=== PATIENT | female | born 1985 | race Caucasian/White ===

== ENCOUNTER 2016-11-21 16:38 | Observation (INO) ==
[2016-11-21] MEDS ORDERED: IOPAMIDOL 100 ML BOTTLE IJ ONE (16:39)
[2016-11-21] MEDS ORDERED: PROMETHAZINE 25 MG/ML VIAL IV ONE ×2 (17:45→19:18)
[2016-11-21] MEDS ORDERED: 0.9 % SODIUM CHLORIDE 1,000 ML IV ONE ×2 (17:46→21:31)
[2016-11-21 18:40] LABS: Appearance,Urine CLEAR; Bacteria,Urine 0 /hpf (0); Bilirubin,Urine NEG (NEG); Color,Urine STRAW; Glucose,Urine (UA) NEGATIVE (NEG); Leukocyte Esterase,Urine 25 /uL (NEG); Nitrate,Urine NEG (NEG); Protein,Urine NEG (NEG); Specific Gravity,Urine 1.005 (1.000-1.035); Urine Blood NEG mg/dL (<0.03); Urine RBC 0 /hpf (0-1); Urine Squamous Epithelial Cell 2 /hpf (0-4); Urine Transitional Epi Cells < 1 /hpf (0-2); Urine WBC 2 /hpf (0-4); Urobilinogen,Urine NEG (NEG)
[2016-11-21 18:51] LABS: ALT/SGPT 6 U/l (0-40); Albumin 4.8 gm/dL (3.2-5.2); Albumin/Globulin Ratio 1.5 (1.0-2.3); Alkaline Phosphatase 77 U/L (39-117); Blood Urea Nitrogen 6 mg/dl (6-20)
[2016-11-21] MEDS ORDERED: POTASSIUM CHLORIDE 40 MEQ in DEXTROSE 5% IN WATER 500 ML IV ONE (18:59)
[2016-11-21] MEDS ORDERED: POTASSIUM CHLORIDE 20 MEQ/10 ML VIAL IV ONE (19:20)
[2016-11-21] MEDS ORDERED: KETOROLAC 30 MG/ML VIAL IV ONE (20:15)
[2016-11-21] MEDS ORDERED: METOCLOPRAMIDE 10 MG/2 ML VIAL IV ONE (20:54)
[2016-11-21] MEDS ORDERED: HYDROmorphone 2 MG/ML SYRINGE IV PRN (21:01)
[2016-11-21] MEDS ORDERED: PANTOPRAZOLE 40 MG VIAL IV ONE (21:01)
--- NOTE | 2016-11-21 21:05 | Emergency Department Note ---
Abdominal Pain HPI - General Chief Complaint: Nausea/Vomiting/Diarrhea Stated Complaint: abdominal pain, nausesa Time Seen by Provider: 11/21/16 17:56 Source: patient Mode of arrival: ambulatory Limitations: no limitations - History of Present Illness HPI Narrative: Approximate three-week total history of illness/malaise/fatigue with intractable vomiting. She came to the ER 4 days ago complaining of same was treated with Phenergan because she had developed a reaction to Zofran. She was also given potassium for hypokalemia. Abdominal series was negative at that time. She comes back tonight having managed at home for the last 4 days with Phenergan but has now run out. She is not getting significantly better. Still having right upper quadrant pain radiating across the whole upper abdomen. Some GERD as well status post vomiting. Her mother who is here for the interview and exam as well notes that she has not been able to hold much down without the Phenergan. She is able to eat somewhat the Phenergan. Low-grade fevers reported - Related Data Previous Rx's Medication Instructions Recorded Promethazine HCl 12.5 mg PO Q6HP PRN #12 tablet 11/19/16 Allergies Allergy/AdvReac Type Severity Reaction Status Date / Time ondansetron AdvReac Intermediate Verified 11/18/16 22:42 [From Zofran (as hydrochloride)] Penicillins AdvReac Unknown Verified 11/21/16 16:45 Review of Systems All systems ED: reviewed and negative except as stated. Abdominal Pain PMH - Past Medical History Attestation: Yes: The following information was validated with the patient. Medical history: Reports: no medical history Surgical history ED: Reports: other (breast augmentation, D&C 2) Physical Exam Normocephalic atraumatic. Conjunctiva clear sclerae anicteric. No nasal discharge or congestion. Oropharynx with dry buccal mucosa. Clear braces on her teeth. Neck is supple without lymphadenopathy or thyromegaly. Heart is regular rate and rhythm no murmurs appreciated. Lungs are clear to auscultation bilaterally without wheezes rales rhonchi or respiratory distress. Abdomen soft mildly tender throughout but especially upper quadrant and epigastrium. No pedal edema. +2 radial pulse. Notable tremor and chills low- grade temperature elevation. Alert oriented and able to answer questions appropriately. - General Limitations: no limitations Course Vital Signs Temperature 97.5 F L 11/21/16 16:40 Pulse Rate 76 11/21/16 16:40 Respiratory Rate 18 11/21/16 16:40 Pulse Oximetry (%) 100 11/21/16 16:40 Temperature 97.5 F L 11/21/16 16:40 Pulse Rate 61 11/21/16 19:00 Respiratory Rate 18 11/21/16 19:00 Blood Pressure 122/73 11/21/16 19:00 Pulse Oximetry (%) 100 11/21/16 19:00 Abdominal Pain - Lab Data Lab results reviewed: Yes I reviewed the patient's lab results. Result diagrams: 11/21/16 17:48 Lab Results 11/21/16 11/21/16 11/21/16 Range/Units 17:38 17:48 17:48 POC Hct 44.0 (36.0-48.0) % POC Sodium 143 (133-145) mmol/L Sodium 141 (133-145) mmol/L POC Potassium 3.0 L (3.3-5.1) mmol/L Potassium 3.1 L (3.3-5.1) mmol/L POC Chloride 110 H (96-108) mmol/L Chloride 100 (96-108) mmol/L Carbon Dioxide 26 (22-30) mmol/L POC Total CO2 26 (22-30) mmol/L Anion Gap 15.0 (8-16) POC BUN 4 L (6-20) mg/dl BUN 6 (6-20) mg/dl Creatinine 0.7 (0.6-1.1) mg/dl POC Creatinine 0.6 (0.6-1.1) mg/dl GFR Calculation 115 Glucose 103 (70-105) mg/dL POC Glucose 104 (70-105) mg/dL Calcium 9.5 (8.6-10.4) mg/dl POC WB Ioniz Calcium 1.18 (1.16-1.32) mmol/L Total Bilirubin 0.3 (0.0-1.0) mg/dL AST 11 (0-37) U/l ALT 6 (0-40) U/l Alkaline Phosphatase 77 (39-117) U/L Total Protein 8.1 (5.9-8.4) gm/dL Albumin 4.8 (3.2-5.2) gm/dL Globulin 3.3 (2.2-3.7) gm/dL Albumin/Globulin Ratio 1.5 (1.0-2.3) Urine Color Straw Urine Appearance Clear Urine pH 7.0 (5.0-9.0) Ur Specific [place] 1.005 (1.000-1.035) Urine Protein Neg (NEG) mg/dL Urine Glucose (UA) Negative (NEG) mg/dL Urine Ketones Neg (NEG) mg/dL Urine Occult Blood Neg (<0.03) mg/dL Urine Nitrate Neg (NEG) Urine Bilirubin Neg (NEG) mg/dL Urine Urobilinogen Neg (NEG) mg/dL Ur Leukocyte Esterase 25 A (NEG) /uL Urine RBC 0 (0-1) /hpf Urine WBC 2 (0-4) /hpf Ur Squamous Epith Cells 2 (0-4) /hpf Ur Transition Epith Cell < 1 (0-2) /hpf Urine Bacteria 0 (0) /hpf Ur Culture Indicated? No - Radiology Data Radiology results reviewed: Yes I reviewed the patient's radiology results. CT scan of the abdomen and pelvis does not show concerning features Disposition Clinical Impression: Hypokalemia, gastrointestinal losses Intractable nausea and vomiting Qualifiers: Vomiting type: unspecified Qualified Code(s): R11.2 - Nausea with vomiting, unspecified Summary: Initially treated with Phenergan 2 doses Toradol and a K rider for the hypokalemia. Over she remains intractable nausea and vomiting. At this point I ordered few more labs and gave her dose Protonix Dilaudid and Reglan Discussed with Dr. hylton- will admit the patient for intractable nausea and vomiting further workup and treatment Disposition: Xfer As Outpt/Obs ([facility]) Condition: Fair Referrals: Jennifer Tavarez ARNP [Primary Care Provider] -
[2016-11-21 21:47] LABS: Amphetamine Screen,Urine NONE DETECTED (NONDETECTED); Benzodiazepines Screen,Urine NONE DETECTED (NONDETECTED); Cocaine Screen,Urine NONE DETECTED (NONDETECTED); Opiate Screen,Urine NONE DETECTED (NONDETECTED)
--- NOTE | 2016-11-21 22:39 | Internal Med History&Physical ---
Medical - H&P: HPI Patient information: Note initiated : 11/21/16 at 10:30 pm Service Date, if different from initiated Date: [] Patient: Danielle Winchester a 31 y/o F admitted on for abdominal pain, nausesa. Chief Complaint: [] History of present illness: Ms. Winchester is a 31 year old female, woman, presents to the ER today for evaluation of significant nausea, vomiting and dizziness which has been going on for 1 week. The patient was here in the ER 2 days ago, where she was daignosed with gastroenteritis, and given phnergan and sent home, the patient was able to use the phenargan to help keep food down, but she finished her medication and her symptoms returned. The patient notes that she had a viral syndrome, with stuffy nose, cough, and sinus congestion approximately 1.5 weeks ago, she was given zithromax by her PCP , but she did not take the medication and her symptoms resolved. For the last 1 week the patient has been having significant nausea/ vomiting/ dizziness (vertigo), with room spinning around her, and epigastric, right upper quadrant abdominal pain. She also endorses some tinnitus, which is intermittent , but denies any hearing loss. The vertigo and nausea vomiting started around the same time, there is no h/o headache or focal neurological deficit. Abominal pain, and nausea and vomiting has been intractable, she admits to get some relief with anti nausea medications, but the symptoms recur. She does not have h/o gall stones, but does endorse h//o significant reflux disease, she does not take any medications She also had some low grade temperature at her home. In the ER the patient underwent a CT scan of the abdomen which is unremarkable, read by the dasha woods, the patient Urine hcg was read as negative in the ER The patient LMP was 2 weeks ago, she notes that 6 weeks ago her periods started changing, and she had a period 6 weeks ago, and then again 2 weeks ago. She does not use any contraceptive device, and her has had a vasectomy. - Constitutional Constitutional: Present: chills, fever(s), weakness - EENT Eyes: Present: blurry vision. Absent: loss of vision Ears: Present: tinnitus. Absent: decreased hearing, ear pain Nose, mouth and throat: Present: disequilibrium, dizziness, vertigo. Absent: abnormal hearing, epistaxis, sinus pain, sore throat - Cardiovascular Cardiovascular: Present: lightheadedness. Absent: chest pain, chest pain at rest, syncope - Respiratory Respiratory: Absent: cough, dyspnea on exertion, excessive phlegm production - Gastrointestinal Gastrointestinal: Present: abdominal pain, nausea, vomiting. Absent: constipation, diarrhea, hematemesis, hematochezia - Genitourinary Genitourinary: Absent: hematuria, urinary hesitancy, urinary urgency Menstruation: Present: as per HPI - Integumentary Integumentary: Absent: new lesions, jaundice - Neurological Neurological: Present: vertigo. Absent: focal weakness, syncope - Endocrine Endocrine: Absent: polydipsia, polyphagia, polyuria - Hematologic/Lymphatic Hematologic/Lymphatic: Absent: easy bleeding, easy bruising - Allergic/Immunologic Allergic/Immunologic: Absent: uticaria, wheezing Medical - H&P: PMH Medical history: h/o GERD Surgical history: No surgical history Pertinent family history: Mother had GB revmoved Uncle with ca pancreas. Social history: lives with denies recreational drugs. no etoh. Medical - H&P: Meds Allergies Allergy/AdvReac Type Severity Reaction Status Date / Time ondansetron AdvReac Intermediate Verified 11/18/16 22:42 [From Zofran (as hydrochloride)] Penicillins AdvReac Unknown Verified 11/21/16 16:45 Medical - H&P: Exam - Constitutional Vitals: Temp Pulse Resp BP Pulse Ox 97.5 F L 61 18 122/73 100 11/21/16 16:40 11/21/16 19:00 11/21/16 19:00 11/21/16 19:00 11/21/16 19:00 General appearance: average body habitus, cooperative, disheveled - Head Head exam: Present: atraumatic, normal inspection, normocephalic - Eye Eye exam: Present: PERRL. Absent: conjunctival injection, periorbital swelling , periorbital tenderness, scleral icterus - ENT ENT exam: Present: mucous membranes dry, TM's normal bilaterally - Neck Neck exam: Present: normal inspection - Respiratory Respiratory exam: Present: normal respiratory exam. Absent: accessory muscle use, chest wall tenderness, decreased breath sounds, rhonchi, stridor, wheezes - Cardiovascular Cardiovascular exam: Present: normal rate and rhythm, +S1, +S2 - GI/Abdominal GI/Abdominal exam: Present: normal bowel sounds, soft Additional comments: right upper quadrant tenderness, worse with deep inspiration. Left lower quadrant tenderness. - Extremities Exam Extremities exam: Present: Foot pink and warm, neurovascular intact. Absent: pedal edema - Neurological Exam Neurological exam: Present: alert, CN II-XII intact, oriented X3. Absent: motor sensory deficit - Psychiatric Psychiatric exam: Absent: agitated, anxious - Skin Skin exam: Absent: rash, urticaria, vesicles Medical - H&P: Reslt - Labs CBC & Chem 7: 11/21/16 17:48 Labs: BMP 11/21/16 17:48 Sodium 141 Potassium 3.1 L Chloride 100 Carbon Dioxide 26 BUN 6 Creatinine 0.7 Glucose 103 Calcium 9.5 Liver Function 11/21/16 Range/Units 17:48 Total Bilirubin 0.3 (0.0-1.0) mg/dL AST 11 (0-37) U/l ALT 6 (0-40) U/l Alkaline Phosphatase 77 (39-117) U/L Albumin 4.8 (3.2-5.2) gm/dL Urine 11/21/16 Range/Units 17:38 Urine Color Straw Urine Appearance Clear Urine pH 7.0 (5.0-9.0) Ur Specific [place] 1.005 (1.000-1.035) Urine Protein Neg (NEG) mg/dL Urine Glucose (UA) Negative (NEG) mg/dL Medical - H&P: A/P (1) Acute vestibular neuritis Current visit: Yes Status: Acute (2) Hypokalemia, gastrointestinal losses Current visit: Yes Status: Acute (3) Intractable nausea and vomiting Current visit: Yes Status: Acute - Narrative A/P Narrative: This is a 31 yr female who presents with vertigo, nausea and vomiting after an upper resp infection approx 2.5 weeks ago, her symptoms started 1 week ago. given her history its likely that she has vestibular neuritis, no hearing loss reported. Treat with IV steroids for now, and symptomatic management for nausea and vomiting. The patients mother had gall stones/ gall bladder surgery, its possible that the patient has Gall bladder disease, and evidenced by ruq pain, a neg CT is reassuring, labs were negative 2 days ago for amylase lipase and normal lft, will repeat same. get usg liver Alternatively this could just be severe gastritis Treat symptomatically for now, IV fluids, IV ppi, IV reglan (has gastric distention on CT, this will help with prokinetic action) she is allergic to zofran.. Replace K IV, recheck labs.
[2016-11-21] MEDS ORDERED: SENNOSIDES 1 TABLET PO PRN (23:06)
[2016-11-21] MEDS ORDERED: MAGNESIUM HYDROXIDE 30 ML ORAL.SUSP PO PRN (23:06)
[2016-11-21] MEDS ORDERED: BISACODYL 10 MG SUPP.RECT PR PRN (23:06)
[2016-11-21] MEDS ORDERED: NALOXONE HCL 0.4 MG/ML VIAL IV PRN (23:06)
[2016-11-21] MEDS ORDERED: methylPREDNISolone SOD SUCC 125 MG/2 ML VIAL ONE (23:37)
[2016-11-21] MEDS ORDERED: HYDROmorphone 2 MG/ML SYRINGE ONE (23:38)
[2016-11-21] MEDS: methylPREDNISolone SOD SUCC 40 MG/ML VIAL IV SCH (23:44)
[2016-11-21] MEDS: DEXTROSE 5%-1/2NS 1,000 ML IV SCH (23:44)
[2016-11-21] MEDS: HYDROmorphone 2 MG/ML SYRINGE IV PRN (23:45)
[2016-11-21 23:55] LABS: Basophils # (Auto) 0 K/mcL (0.0-0.3); Basophils % (Auto) 0.4 % (0.0-2.0); Eosinophils # (Auto) 0.1 K/mcL (0.0-0.7); Eosinophils % (Auto) 1.4 % (0.0-7.0); Granulocytes % (Auto) 59.5 % (38.0-78.0); Lymphocytes # (Auto) 3.2 K/mcL (1.5-4.8); Lymphocytes % (Auto) 31.6 % (15.5-49.0); Mean Cell Volume 85.4 fL (80.0-100.0); Mean Corpuscular HGB Conc 32.1 g/dL (31.0-36.0); Mean Corpuscular Hemoglobin 27.4 pg (26.0-34.0); Monocytes # (Auto) 0.7 K/mcL (0.1-0.9); Monocytes % (Auto) 7.1 % (1.0-9.0); Platelet Count 388 K/mcL (140-440); RBC 5.08 M/mcL (4.00-5.20); Red Cell Distribution Width 13.4 % (11.5-14.5)
[2016-11-22] MEDS: methylPREDNISolone SOD SUCC 40 MG/ML VIAL IV SCH ×4 (00:10→21:36)
[2016-11-22 00:15] LABS: Estimated Average Glucose(eAG) 97 mg/dL
[2016-11-22 00:22] LABS: ALT/SGPT 5 U/l (0-40); Albumin 4.2 gm/dL (3.2-5.2); Albumin/Globulin Ratio 1.7 (1.0-2.3); Alkaline Phosphatase 67 U/L (39-117); Amylase 38 U/L (28-100); Bilirubin,Direct < 0.2 mg/dL (0.0-0.3); Blood Urea Nitrogen 4 mg/dl (6-20); Gamma Glutamyl Transpeptidase 13 U/L (5-36); Lipase 34 U/L (7-60); Magnesium 1.9 mg/dL (1.6-2.5); Phosphorous 3.4 mg/dL (2.7-4.5); Uric Acid 2.6 mg/dL (2.5-8.0)
[2016-11-22] MEDS ORDERED: METOCLOPRAMIDE 10 MG/2 ML VIAL ONE (03:50)
[2016-11-22] MEDS: 0.9 % SODIUM CHLORIDE 10 ML SYRINGE IV SCH ×3 (06:36→21:29)
[2016-11-22] MEDS: DEXTROSE 5%-1/2NS 1,000 ML IV SCH ×2 (07:39→15:07)
[2016-11-22] MEDS: PANTOPRAZOLE 40 MG VIAL IV SCH ×2 (07:39→17:43)
[2016-11-22] MEDS: METOCLOPRAMIDE 10 MG/2 ML VIAL IV PRN ×3 (08:25→20:24)
[2016-11-22] MEDS: HYDROmorphone 2 MG/ML SYRINGE IV PRN (08:27)
--- NOTE | 2016-11-22 09:05 | Cat Scan Report ---
CLINICAL INFORMATION: Reason for Exam:nausea and vomiting x 3 weeks, belly pain COMPARISON: None. TECHNIQUE: Following injection of intravenous contrast the patient was scanned during the portal venous phase from the diaphragm through the symphysis pubis. Sagittal and coronal reformats were created.. Five minute delayed axial images of the upper abdomen were acquired. FINDINGS: There is a trace amount of pleural fluid layering posteriorly bilaterally. Bilateral breast implants are noted. The lung bases are clear. There is a 1.0 x 1.4 cm oval-shaped low-attenuation nodule located far inferiorly in the right lobe of the liver. On the five minute delayed images this perfuses and becomes nearly isodense with the surrounding liver parenchyma. The remainder the liver is normal in size and homogeneous. The gallbladder and bile ducts are normal. The spleen is normal in size and homogeneous. The pancreas and adrenals are normal. There is a 1.2 cm simple cyst in the cortex posteriorly in the middle third of the left kidney. The kidneys are otherwise normal without evidence of stone, hydronephrosis, mass or inflammation. The bowel pattern is normal, without evidence of ileus, obstruction, inflammation or diverticulosis. The appendix is noninflamed. The uterus and ovaries appear normal. Urinary bladder has a normal smooth contour with no intraluminal filling defects. IMPRESSION: 1. No acute abnormality 2. 1 x 1.4 cm nodule in the right lobe of the liver. This may be a hemangioma or adenoma. 3. Simple cyst in left kidney 4. Dr. Xiao was called with results Interpreted and Authenticated by: Mert Lisa 11/22/16
--- NOTE | 2016-11-22 10:15 | Ultrasound Report ---
History: Nausea, right upper quadrant pain and liver mass seen on yesterday's CT scan Findings: Inferiorly in the right lobe of the liver there is a well-circumscribed 1.2 x 1.3 x 1.4 cm nodule. It is more echogenic than the surrounding liver parenchyma. Doppler shows no abnormal increased blood flow. This correlates well with the findings on the CT. The remainder of the liver is normal in size and homogeneous. Doppler shows normal blood flow in the hepatic and portal veins. Gallbladder is normal with no stones or thickening of the wall. The common bile duct is 2.2 mm. The pancreas is normal in size and homogeneous. No ascites is present. Impression: Hemangioma in the right lobe of the liver Normal gallbladder Interpreted and Authenticated by: Mert Lisa 11/22/16
[2016-11-22] MEDS: ENOXAPARIN 40 MG/0.4 ML SYRINGE SQ SCH (10:29)
--- NOTE | 2016-11-22 12:29 | Internal Med Progress Note ---
Medical - PN: Subj Patient information: Note initiated : 11/22/16 at 12:27 pm Service Date, if different from initiated Date: [] Patient: Danielle Winchester 31 y/o F admitted on 11/21/16 for abdominal pain, nausesa. Chief Complaint: [] Interval history: Pt seen examined this AM, doing well, had abdominal pain, and nause/ vomiting overnight, but not any longer She denies any dizziness, or vertigo Still has some pain in the abdomen, but was able to tolerate a liquid diet, She wants to eat full diet , and wanted a dougnut. She is concerned regarding her vomting and curious to its etiology. Her CT Scan is neg, Ultrasound of the liver is negative. I discussed the treatment options with conservative management for now, and if her condition does not improve tomorrow, consider a GI evaluation. Patient is on IV fluids for hydration. Plan of care discussed with the patient and family members (, mother) in the room. Pertinent ROS: abdomina pain, present, nausea present, but responding to reglan, no vomiting this am no chest pain, shortness of breath no cough no headache, hearing loss. - Constitutional Vitals: Vital Signs Temp Pulse Resp BP Pulse Ox 98.3 F 77 18 106/78 98 11/22/16 12:00 11/22/16 12:00 11/22/16 12:00 11/22/16 12:00 11/22/16 12:00 Period Temp Pulse Resp BP Sys/Ortiz Pulse Ox Last 24 Hr 97.8 F-98.3 F 75-77 16-18 105-107/68-78 95-99 Intake and Output 11/21/16 11/22/16 11/22/16 21:59 05:59 13:59 Intake Total 388 / 388 990 / 990 Output Total 50 / 50 Balance 338 / 338 990 / 990 Intake & Output: Intake & Output 11/21/16 11/22/16 11/22/16 21:59 05:59 13:59 Intake Total 388 / 388 990 / 990 Output Total 50 / 50 Balance 338 / 338 990 / 990 Intake: IV 388 / 388 990 / 990 Sodium Chloride 0.9% 1, 388 / 388 000 ml @ Wide Open IV BOL[facility] ONE Rx#:[id number] Dextrose 5%-1/2Ns IV 990 / 990 Solution 1,000 ml @ 125 mls/hr IV .Q8H [facility] Rx#: [id number] Output: Emesis 50 / 50 Other: # Voids 1 1 General appearance: cooperative, no acute distress - Head Head exam: Present: atraumatic, normal inspection, normocephalic - Eye Eye exam: Present: EOMI, PERRL. Absent: periorbital swelling, periorbital tenderness, scleral icterus - ENT ENT exam: Present: mucous membranes moist - Neck Neck exam: Present: full ROM - Respiratory Respiratory exam: Present: normal respiratory exam. Absent: accessory muscle use, chest wall tenderness, stridor, wheezes - Cardiovascular Cardiovascular exam: Present: normal rate and rhythm, +S1, +S2 - GI/Abdominal GI/Abdominal exam: Present: normal bowel sounds, soft Additional comments: right upper quadrant tendernes present. - Neurological Exam Neurological exam: Present: abnormal gait, alert, CN II-XII intact, oriented X3. Absent: motor sensory deficit Medical - PN: Obj Da - Labs CBC & Chem 7: 11/21/16 23:20 11/21/16 23:20 Labs: Abnormal Lab Results 11/21/16 23:20 BUN 4 L Creatinine 0.5 L Glucose 110 H Meds: Medications Bisacodyl (Dulcolax) 10 mg UT Q2-3DAYS PRN PRN Reason: Constipation Enoxaparin Sodium (Lovenox) 40 mg SQ DAILY [facility] Last Admin: 11/22/16 10:29 Dose: 40 mg Hydromorphone HCl (Dilaudid) 0.5 mg IV Q2HP PRN PRN Reason: Pain Last Admin: 11/22/16 08:27 Dose: 0.5 mg Dextrose/Sodium Chloride (Dextrose 5%-1/2ns Iv Solution) 1,000 mls @ 125 mls/ hr IV .Q8H [facility] Last Admin: 11/22/16 07:39 Dose: 125 mls/hr Magnesium Hydroxide (Milk Of Magnesia) 30 ml PO DAILYP PRN PRN Reason: Constipation Methylprednisolone Sodium Succinate (Solu-Medrol) 40 mg IV Q8 [facility] Last Admin: 11/22/16 07:38 Dose: 40 mg Metoclopramide HCl (Reglan) 5 mg IV Q6 PRN PRN Reason: Nausea And Vomiting Last Admin: 11/22/16 08:25 Dose: 5 mg Naloxone HCl (Narcan) 0.1 mg IV Q2MIN PRN PRN Reason: Opiate Reversal Pantoprazole Sodium (Protonix) 40 mg IV BIDAC [facility] Last Admin: 11/22/16 07:39 Dose: 40 mg Senna (Senokot) 2 tab PO HS PRN PRN Reason: Constipation Sodium Chloride (Saline Flush) 10 ml IV Q8 [facility] Last Admin: 11/22/16 06:36 Dose: Not Given Medical - PN: A/P - Time Spent With Patient Total time spent is greater than 50% in coordination of care (as documented) at patient's floor/unit and/or counseling patient: (1) Acute vestibular neuritis Status: Acute Assessment and plan: on solumedrol for now consider sending home on a fast taper no nystagmus on exam today This is a possible explanation for her nausea / vomitnig symptom given neg Imaging. however the patient also has h/o hpylori, which she reports was treated in the past. Current Visit: Yes (2) Hypokalemia, gastrointestinal losses Status: Acute Assessment and plan: K normal, /p replacement, tolerating po diet well. Current Visit: Yes (3) Intractable nausea and vomiting Status: Acute Assessment and plan: improved with reglan, continue same for now monitor. Current Visit: Yes - Narrative A/P Narrative: DVT prophylaxis enoxaparin for now, till she is ambulatory. Diet advance to regular, she was able to tolerate liquid diet. Medical - PN: Qual - Stroke Symptom Onset Unknown: No - VTE Deep Vein Thrombosis/Pulmonary Embolism Present on Admission: No
[2016-11-23] MEDS: HYDROmorphone 2 MG/ML SYRINGE IV PRN ×2 (00:59→08:24)
[2016-11-23] MEDS: DEXTROSE 5%-1/2NS 1,000 ML IV SCH ×2 (01:07→08:23)
[2016-11-23] MEDS: METOCLOPRAMIDE 10 MG/2 ML VIAL IV PRN ×2 (02:39→08:23)
[2016-11-23] MEDS: methylPREDNISolone SOD SUCC 40 MG/ML VIAL IV SCH (05:57)
[2016-11-23] MEDS: 0.9 % SODIUM CHLORIDE 10 ML SYRINGE IV SCH (06:09)
[2016-11-23] MEDS: PANTOPRAZOLE 40 MG VIAL IV SCH (08:22)
[2016-11-23] MEDS: ENOXAPARIN 40 MG/0.4 ML SYRINGE SQ SCH (08:23)
[2016-11-23 08:29] LABS: ALT/SGPT < 5 U/l (0-40); Albumin 4.2 gm/dL (3.2-5.2); Albumin/Globulin Ratio 1.7 (1.0-2.3); Alkaline Phosphatase 63 U/L (39-117); Bilirubin,Direct < 0.2 mg/dL (0.0-0.3); Blood Urea Nitrogen 5 mg/dl (6-20); Gamma Glutamyl Transpeptidase 10 U/L (5-36); Phosphorous 4.2 mg/dL (2.7-4.5); Uric Acid 1.8 mg/dL (2.5-8.0)
[2016-11-23 08:32] LABS: Basophils # (Auto) 0 K/mcL (0.0-0.3); Basophils % (Auto) 0 % (0.0-2.0); Eosinophils # (Auto) 0.1 K/mcL (0.0-0.7); Eosinophils % (Auto) 0.7 % (0.0-7.0); Granulocytes % (Auto) 85.3 % (38.0-78.0); Lymphocytes # (Auto) 1.3 K/mcL (1.5-4.8); Mean Cell Volume 85.9 fL (80.0-100.0); Mean Corpuscular HGB Conc 32.6 g/dL (31.0-36.0); Monocytes # (Auto) 0.5 K/mcL (0.1-0.9); Platelet Count 331 K/mcL (140-440); RBC 4.44 M/mcL (4.00-5.20); Red Cell Distribution Width 13.5 % (11.5-14.5)
[2016-11-23 08:50] LABS: Ionized Calcium 1.26 mmol/L (1.16-1.32)
--- NOTE | 2016-11-23 11:48 | Discharge Summary ---
Medical - DS: Prov Patient information: Note initiated : 11/23/16 at 11:43 am Service Date, if different from initiated Date: [] Patient: Danielle Winchester 31 y/o F admitted on 11/21/16 for Abdominal Pain/ Intractable Nausesa and Vomiting. Chief Complaint: [] Date of admission: 11/21/16 23:03 Discharge date: 11/23/16 Primary care physician: [f_Reg Prim Care Provider] Admitting clinician: Jens Maza Discharging clinician: Jens Maza Medical - DS: Meds - Discharge Medications Prescriptions: Metoclopramide [Reglan] 5 mg PO ACHS #30 tablet Omeprazole [PriLOSEC] 20 mg PO ACB #30 capsule Promethazine HCl 12.5 mg PO Q6HP PRN #30 tablet PRN Reason: Nausea predniSONE [Prednisone] 40 mg PO QAMCC #10 tablet Active and Home Medications: Active Medications Bisacodyl (Dulcolax) 10 mg [place] Q2-3DAYS PRN PRN Reason: Constipation Enoxaparin Sodium (Lovenox) 40 mg SQ DAILY [facility] Last Admin: 11/23/16 08:23 Dose: 40 mg Hydromorphone HCl (Dilaudid) 0.5 mg IV Q2HP PRN PRN Reason: Pain Last Admin: 11/23/16 08:24 Dose: 0.5 mg Dextrose/Sodium Chloride (Dextrose 5%-1/2ns Iv Solution) 1,000 mls @ 125 mls/ hr IV .Q8H [facility] Last Admin: 11/23/16 08:23 Dose: 125 mls/hr Magnesium Hydroxide (Milk Of Magnesia) 30 ml PO DAILYP PRN PRN Reason: Constipation Methylprednisolone Sodium Succinate (Solu-Medrol) 40 mg IV Q8 [facility] Last Admin: 11/23/16 05:57 Dose: 40 mg Metoclopramide HCl (Reglan) 5 mg IV Q6 PRN PRN Reason: Nausea And Vomiting Last Admin: 11/23/16 08:23 Dose: 5 mg Naloxone HCl (Narcan) 0.1 mg IV Q2MIN PRN PRN Reason: Opiate Reversal Pantoprazole Sodium (Protonix) 40 mg IV BIDAC [facility] Last Admin: 11/23/16 08:22 Dose: 40 mg Senna (Senokot) 2 tab PO HS PRN PRN Reason: Constipation Sodium Chloride (Saline Flush) 10 ml IV Q8 [facility] Last Admin: 11/23/16 06:09 Dose: Not Given Medical - DS: Hosp Hospital course: Mr. Winchester is a 31 year old female who presented to the hospital with nausea, vomiting , dizziness associated with right upper quadrant abdominal pain going on for approximately 1.5 weeks. She was in the ER a few days ago and was given phenargan, which helped with her symptoms , but her symptoms recurred and she presented again in the ER on Wednesday, She was admitted to the hospital for further management. The patient underwent a CT Scan of the abdomen which was reported as negative for acute intra abdominal process, she had a liver ultrasound which was neg for GB, non dialated cbd. The patient was given pain medications and IV reglan which seemed to help, she is allergic to zofran. The patient had URI like symptoms approximately 2 weeks before presentation with nausea and vomiting, She also has dizziness/ vertigo like symptoms, and some tinitus, but no hearing loss, her TM appeared normal on exam. Its possible that her nausea and vomiting could be related to vestibular neuritis. She was given IV steroids for same. She will take oral prednisone for additional 5 days. If she persists to have vertigo/ she may benefit from [facility] imaging/ ENT evaluation as outpatient. But this would not explain her abdominal pain. The patient has h/o Hypylori, which she reports was treated in the past. She has abdominal pain, nausea and vomiting, she will be referred to GI as outpatient. She may benefit from repeat EGD, consideration to gastroparesis ( a1c is normal) vs Gallbladder dysfuction to be given. This can be decided by GI as outpatient. The patient on day of discharge was able to tolerate po with help of nausea meds. She will be discharged home with follow up with GI and PCP for further management. Discharge diagnosis: nausea/ Vomiting/ Gastritis vs Neuritis. - Time Spent with Patient Total time spent providing and/or coordinating discharge services: Less than 30 minutes Medical - DS: Exam - Constitutional Vitals: Vital Signs Temp Pulse Resp BP Pulse Ox 11/23/16 07:12 98.2 F 67 18 109/67 95 11/23/16 04:00 98.4 F 72 18 112/70 98 11/22/16 23:03 98.3 F 85 24 114/72 97 11/22/16 19:20 99.5 F 86 24 110/67 97 11/22/16 16:00 97.8 F 88 18 106/78 96 11/22/16 12:00 98.3 F 77 18 106/78 98 Intake and Output 11/22/16 11/23/16 11/23/16 21:59 05:59 13:59 Intake Total 1453 / 1453 1448 / 1448 908 / 908 Output Total 800 / 800 Balance 653 / 653 1448 / 1448 908 / 908 Intake: IV 933 / 933 1000 / 1000 908 / 908 Dextrose 5%-1/2Ns IV 933 / 933 1000 / 1000 908 / 908 Solution 1,000 ml @ 125 mls/hr IV .Q8H [facility] Rx#: [id number] Oral 520 / 520 448 / 448 Output: Void Amount 800 / 800 Other: Meal Lunch Percent of Meal Consumed 75% # Voids 2 Weight 174 lb 8 oz General appearance: average body habitus, cooperative, no acute distress - Head Head exam: Present: atraumatic, normal inspection - Eye Eye exam: Present: PERRL, scleral icterus. Absent: nystagmus, periorbital swelling, periorbital tenderness - ENT ENT exam: Present: mucous membranes moist - Respiratory Respiratory exam: Present: normal respiratory exam, stridor. Absent: accessory muscle use, wheezes - Cardiovascular Cardiovascular exam: Present: normal rate and rhythm, +S1, +S2 - GI/Abdominal GI/Abdominal exam: Present: normal bowel sounds, soft - Neurological Exam Neurological exam: Present: alert, CN II-XII intact, oriented X3. Absent: abnormal gait, motor sensory deficit - Psychiatric Psychiatric exam: Present: anxious. Absent: agitated Medical - DS: Data Labs on day of discharge: Labs from last 24 hours 11/23/16 11/23/16 05:50 05:50 WBC 13.4 H RBC 4.44 Hgb 12.4 Hct 38.2 MCV 85.9 MCH 28.0 MCHC 32.6 RDW 13.5 Plt Count 331 MPV 8.9 Gran % 85.3 H Lymph % (Auto) 10.0 L [place] % (Auto) 4.0 Eos % (Auto) 0.7 Baso % (Auto) 0 Gran # 11.4 H Lymph # 1.3 L [place] # 0.5 Eos # 0.1 Baso # 0 Sodium 141 Potassium 4.2 Chloride 102 Carbon Dioxide 21 L Anion Gap 18.0 H BUN 5 L Creatinine 0.6 GFR Calculation 121 Glucose 154 H Uric Acid 1.8 L Calcium 9.3 Ionized Calcium Familia 1.26 Phosphorus 4.2 Magnesium 2.0 Total Bilirubin 0.2 Direct Bilirubin < 0.2 GGT 10 AST 12 ALT < 5 Alkaline Phosphatase 63 Lactate Dehydrogenase 208 Total Protein 6.7 Albumin 4.2 Globulin 2.5 Albumin/Globulin Ratio 1.7 Triglycerides 55 Preliminary micro results at discharge 11/21/16 23:20 Blood Culture - Preliminary Blood 11/21/16 23:30 Blood Culture - Preliminary Blood Medical - DS: A/P - Patient/Caregiver Discharge Instructions Activity: increase activity as tolerated Diet: Regular Diet Additional Instructions: Please see GI in 7 days, Rona Bowden / Dr Hill as outpatient. Follow up with your PCP in 7 days. Go back to the ER if worsening symptoms. - Problem Maintenance (1) Acute vestibular neuritis Status: Acute (2) Hypokalemia, gastrointestinal losses Status: Acute (3) Intractable nausea and vomiting Status: Acute Qualifiers: Vomiting type: unspecified Qualified Code(s): R11.2 - Nausea with vomiting , unspecified - Follow up Plan Follow up with: Jennifer Tavarez ARNP [Primary Care Provider] - Disposition: Home, Self-Care Prognosis: Fair Rehab Potential: Good I certify that the patient requires SNF services: No Overall status at discharge: patient is progressing back to baseline Medical - DS: Qual - VTE Deep Vein Thrombosis/Pulmonary Embolism Present on Admission: No
== END 2016-11-23 13:00 | disposition home or self-care (01) ==
LOC: ED 16:38 → MEDSUR 16:38
PROVIDERS: ADMIT Internal Medicine; ATTEND Internal Medicine